=== PATIENT | male | born 1950 | race Caucasian/White ===

== ENCOUNTER → 2022-02-28 13:05 | Outpatient (CLI) | payer OTHER, SELFPAY ==
--- NOTE | 2022-02-28 | CA_ITS ---
APPROVED REPORT EXAM: Comprehensive 2D, Doppler, and color-flow Echocardiogram Associate Manager: Christine Borges RT(R) Ht: 6 ft 3 in Wt: 245lbs BSA: 2.39 BP: 135/84 mmHg Indications: CAD, CP, COPD, ex smoker, fatigue, SOB, MINOR, obesity, hyperlipidemia 2D Dimensions LVOT 2.35 cm (M/F) 1.5-2.5 LA Volume 67.00 mL LA Volume Index 28.03 mL/m2 (M/F) 16-34 M-Mode Dimensions RVDd 2.53 cm (0.9-2.6) LA Diam 3.23 cm (1.9-4.0) LVDd 5.71 cm (3.5-5.7) Ao Diam 3.79 cm (2.0-3.7) LVDs 3.74 cm (3.5-5.7) IVSd 0.84 cm (0.6-1.1) PWd 0.84 cm (0.6-1.1) EF (Teich) 62.90% FS 34.50% EDV (Teich) 160.70 mL ESV (Teich) 59.60 mL LV Diastology E Decel Time 173.00 (160-240 msec) E/A Ratio 1.3 MED E' 9.70 (< 7 cm/sec) E'/MED E' Ratio 10.24 (>14) LAT E' 11.80 (<10 cm/sec) E/LAT E' Ratio 8.42 (>14) Mitral Valve MV E Max Kirby. 99.00 (40-130 cm/s) MV A Velocity 75.00 (40-130 cm/s) E/A Ratio 1.32 MV Decel. Time 173.00 (160-240 ms) MV PHT 51.00 ms Left Ventricle Left atrium is mildly enlarged, left ventricle is normal size, mild concentric left ventricular hypertrophy, estimated ejection fraction 55% with no regional wall motion abnormality, grade 1 diastolic dysfunction seen without tissue Doppler evidence of raise left atrial pressure. Right Ventricle Right atrium right ventricle mildly enlarged with normal contractility. Aortic Valve Aortic valve is thickened and calcified without aortic stenosis or aortic insufficiency. Mitral Valve Mitral valve is grossly normal, there is trace mitral regurgitation. Tricuspid Valve Tricuspid grossly normal, there is trace tricuspid regurgitation, tricuspid regurgitation jet velocity is inadequate for calculation of the right ventricular systolic pressure. Pulmonic Valve Pulmonic valve is poorly visualized. Great Vessels Aortic root is normal size. Inferior vena cava is poorly visualized. Pericardium No significant pericardial effusion. Conclusion 1. Mild biatrial enlargement, normal left ventricular size, mild concentric left ventricular hypertrophy, estimated ejection fraction 55% with no regional wall motion abnormality, grade 1 diastolic dysfunction seen without tissue Doppler evidence of raise left atrial pressure. 2. Mildly enlarged right ventricle with normal contractility. 3. Trace mitral and tricuspid regurgitation. 4. No significant pericardial effusion. 5. Inferior vena cava is poorly visualized. Electronically signed by : Nick Moon MD 02/28/2022 19:13:02
== END ==
PROVIDERS: Visit Provider Chiropractor
DX: I25.10 Atherosclerotic heart disease of native coronary artery without angina pectoris (principal)
CPT/HCPCS: 93306